=== PATIENT | male | born 1995 | race Caucasian/White ===

== ENCOUNTER 2023-03-14 08:25 | Emergency (ER) | payer BC, SELFPAY ==
[2023-03-14] MEDS ORDERED: Ibuprofen 800 MG TAB ONE (08:55)
[2023-03-14] MEDS ORDERED: Ondansetron ODT 4 MG TAB ONE (08:55)
== END 2023-03-14 09:15 | disposition home or self-care (01) ==
LOC: BURERS 08:25
DX: J10.1 Influenza due to other identified influenza virus with other respiratory manifestations (principal); F17.210 Nicotine dependence, cigarettes, uncomplicated
CPT/HCPCS: 87804; 99283; Q0162